=== PATIENT | female | born 1960 | race Caucasian/White ===

== ENCOUNTER 2020-11-25 21:49 | Emergency (ER) | payer OTHER ==
[~2020-11-25] VITALS: Ht 162.6 cm; Wt 142.9 kg
[~2020-11-25 21:49] MED LIST: CIPROFLOXACIN500 M1 PO; GLUCOPHAGE1000 MG; LIPITOR20 MG; LISINOPRIL20 MG PO; NORCO 5-325 TA1 EACH PO; NORVASC10 MG; PAXIL20 MG; PERCOCET 5-3251 EACH PO; ZANAFLEX4 M1; ZOFRAN ODT4 MG PO
[2020-11-25] MEDS ORDERED: TOPAMAX 25 MG T25 M1 PO (22:06)
[2020-11-25] MEDS ORDERED: NABUMETONE 750750 M1 PO (22:06)
[2020-11-25] MEDS ORDERED: NORCO5 PO (23:39)
[2020-11-25 23:54] VITALS: BP 166/79
== END 2020-11-25 23:54 | disposition home or self-care (01) ==
LOC: M.ERS 21:49
DX: S93.401A Sprain of unspecified ligament of right ankle, initial encounter (principal); S00.03XA Contusion of scalp, initial encounter; S80.01XA Contusion of right knee, initial encounter; E11.9 Type 2 diabetes mellitus without complications; I10 Essential (primary) hypertension; E66.01 Morbid (severe) obesity due to excess calories; Z90.711 Acquired absence of uterus with remaining cervical stump; Z98.890 Other specified postprocedural states; Z79.899 Other long term (current) drug therapy; V89.2XXA Person injured in unspecified motor-vehicle accident, traffic, initial encounter; Y93.I9 Activity, other involving external motion; Y92.488 Other paved roadways as the place of occurrence of the external cause; Y99.8 Other external cause status